=== PATIENT | female | born 1945 | race Caucasian/White ===

== ENCOUNTER → 2016-10-23 | Outpatient (CLI) | payer OTHER ==
[~2016-10-23] VITALS: Ht 154.9 cm; Wt 86.0 kg
[~2016-10-23] MED LIST: ASPI-232 PO; CALC1CHW57 PO; DIPH25TA24 PEG; ESCI1TAB18 PO; INDA2.5T PO; LEVO50TA PO; LORA-741 PO; LPT/40 PO; METOPOW PO; MISCCAP80 PO; MULTTAB PO
[2016-10-23 14:43] VITALS: BP 127/79; PULSE 81; Ht 154.9 cm; Wt 86.0 kg
== END | disposition home or self-care (01) ==
LOC: C.NEUR 13:27
PROVIDERS: ATTEND Physician Assistant Medical
DX: G47.33 Obstructive sleep apnea (adult) (pediatric) (principal); R09.02 Hypoxemia